=== PATIENT | female | born 1980 | race Caucasian/White ===

== ENCOUNTER 2016-10-16 12:20 | Emergency (ER) | payer BC ==
[~2016-10-16] VITALS: Wt 56.8 kg
--- NOTE | 2016-10-16 12:59 | RADRPT ---
PROCEDURE: XR Wrist. CLINICAL INDICATION: Right wrist pain, fall TECHNIQUE: AP, lateral and oblique views of the right wrist were performed. COMPARISON: No prior studies are available for comparison. FINDINGS: There is an acute comminuted mildly displaced distal radial metaphysis fracture with additional frac ture line at the radial styloid that may be extending to the articular surface. There is approximat nannette 5 mm of dorsal offset and slight dorsal angulation at the metaphyseal fracture line. There is ap proximately 1-2 mm of radial sided cortical offset at the metaphysis. There is also an acute minimally-displaced distal ulnar metaphysis fracture extending to the ulnar s tyloid. Diffuse soft tissue swelling of the wrist is noted. IMPRESSION: 1. Acute slightly comminuted distal radial metaphysis fracture with 5 mm of dorsal cortical offset a nd slight dorsal angulation. There is likely a nondisplaced intra-articular component of the fractu re involving the radial styloid as well. 2. Acute minimally-displaced distal ulnar metaphysis fracture extending to the ulnar styloid. RPTAT: UU .Pepe Anderson MD, Date Time Electronically viewed and signed by .Pepe Anderson MD, on 10/16/2016 12:59 .K/
[2016-10-16] MEDS ORDERED: IBUP800T25 PO (13:11)
--- NOTE | 2016-10-16 13:14 | ERD ---
ER Documentation Chief Complaint Date/Time DATE: 10/16/16 TIME: 13:13 Chief Complaint R WRIST PAIN WITH MILD SWELLING NO DEFORMITY NOTED. ONSET SINCE LAST NOC HPI This is a 36-year-old female who presents to the emergency room for evaluation of right-sided wrist pain. The patient states that she did fall last night on an outstretched hand. She denies any numbness or tingling in the hand, denies any other trauma or head injury. She does say she has pain in her wrist and the pain is worse with movement. ROS All systems reviewed and are negative except as per history of present illness. Medications Home Meds Active Scripts Ibuprofen* (Motrin*) 800 Mg Tab, 800 MG PO Q6H Y for PAIN AND OR ELEVATED TEMP, #30 TAB Prov:LINDA LOVENEO SMALL 10/16/16 Allergies Allergies: Coded Allergies: No Known Allergy (Unverified , 10/16/16) PMhx/Soc Medical and Surgical Hx: pt denies Medical Hx, pt denies Surgical Hx Hx Alcohol Use: No Hx Substance Use: No Hx Tobacco Use: No Smoking Status: Never smoker Physical Exam Vitals Vital Signs Date Time Temp Pulse Resp B/P Pulse Ox O2 Delivery O2 Flow Rate FiO2 10/16/16 12:34 98.0 78 20 104/72 98 Physical Exam Const: No acute distress, Head: Atraumatic Eyes: Normal Conjunctiva ENT: Normal External Ears, Nose and Mouth. Neck: Full range of motion..~ No meningismus. Resp: Clear to auscultation bilaterally Cardio: Regular rate and rhythm, no murmurs Abd: Soft, non tender, non distended. Normal bowel sounds Skin: No petechiae or rashes Back: No midline or flank tenderness Ext: Mild soft tissue swelling of the wrist, no cyanosis, or edema Neur: Awake and alert Psych: Normal Mood and Affect Procedures/MDM X-ray Wrist 3V Interpreted by me: Scaphoid: [Normal] Bones: Distal radial fracture, distal ulna fracture Joints: [No dislocation] Foreign body: [None] Departure Diagnosis: Primary Impression: Wrist fracture, right Patient Instructions: Radius And Ulna Fx, No Reduction Required Referrals: [facility] 7 a.m.- 11 p.m. Every Day of the Week NO APPOINTMENT OR AUTHORIZATION NEEDED [facility] Hours: Mon-Fri 9:00 AM - 5:00 PM Additional Instructions: Please follow-up with your orthopedic surgeon, You are amazing Doc!!!!!!!! REESE LOVE DO October 16, 2016 13:14
== END 2016-10-16 14:25 | disposition home or self-care (01) ==
LOC: E/R 12:20
DX: S52.611A Displaced fracture of right ulna styloid process, initial encounter for closed fracture (principal); S59.291A Other physeal fracture of lower end of radius, right arm, initial encounter for closed fracture; W18.39XA Other fall on same level, initial encounter; Y92.9 Unspecified place or not applicable

== ENCOUNTER 2019-01-24 08:28 | Emergency (ER) | payer BC ==
[~2019-01-24] VITALS: Ht 170.2 cm; Wt 55.0 kg
[~2019-01-24 08:28] MED LIST: HYDR-3980 PO; IBUP800T48 PO; ONDA4TAB14 PO
[2019-01-24 08:30] VITALS: Ht 170.2 cm; Wt 55.0 kg
[2019-01-24] MEDS ORDERED: HYDROmorphONE 1 MG/ML SYG IV ONE (08:30)
[2019-01-24] MEDS ORDERED: ONDANSETRON 4 MG INJ IV ONE (08:30)
[2019-01-24] MEDS ORDERED: SOD CHLORIDE 0.9% 500 ML IV STA (08:30)
[2019-01-24] MEDS ORDERED: HYDROmorphONE 2 MG/ML SYG IV STA (08:56)
[2019-01-24] MEDS ORDERED: KETAMINE (50 MG/ML) 10 ML VIAL IV STA ×2 (09:11→11:13)
[2019-01-24] MEDS ORDERED: PROPOFOL 200 MG INJ IV STA ×2 (09:11→11:13)
[2019-01-24] MEDS ORDERED: ONDANSETRON 4 MG INJ IV STA ×2 (11:09→12:48)
[2019-01-24 13:00] VITALS: BP 111/69; PULSE 79; RESP 16
--- NOTE | 2019-01-24 13:36 | ERD ---
ER Documentation Chief Complaint Chief Complaint left hip pain/injury due to fall HPI 38-year-old female otherwise healthy presents to the emergency room with sudden onset of left hip pain status post mechanical fall just prior to arrival. The patient was running slipped on a rock and fell down. She did not hit her head or lose consciousness. The patient is extremely left hip pain that is 10 out of 10, hip is held in flexion and the patient is shortening of the left lower extremity. ROS All systems reviewed and are negative except as per history of present illness. Medications Home Meds Active Scripts Ondansetron (Ondansetron Odt) 4 Mg Tab.rapdis, 4 MG PO Q6H PRN for NAUSEA AND/OR VOMITING, #30 TAB Prov:CAROLINA VELAZQUEZ MD 01/24/19 Ibuprofen* (Motrin*) 800 Mg Tab, 800 MG PO Q6H PRN for PAIN AND OR ELEVATED TEMP, #30 TAB Prov:CAROLINA VELAZQUEZ MD 01/24/19 Hydrocodone/Acetaminophen (Hope 10-325 Tablet) 1 Each Tablet, 1 TAB PO Q6H PRN for PAIN, #10 TAB Prov:CAROLINA VELAZQUEZ MD 01/24/19 Ibuprofen* (Motrin*) 800 Mg Tab, 800 MG PO Q6H PRN for PAIN AND OR ELEVATED TEMP, #30 TAB Prov:REESE LOVE DO 10/16/16 Allergies Allergies: Coded Allergies: No Known Allergy (Unverified , 10/16/16) PMhx/Soc Medical and Surgical Hx: pt denies Medical Hx Hx Alcohol Use: No Hx Substance Use: No Hx Tobacco Use: No Smoking Status: Never smoker FmHx Family History: No diabetes Physical Exam Vitals Vital Signs Date Temp Pulse Resp B/P (MAP) Pulse Ox O2 O2 Flow FiO2 Time Delivery Rate 01/24/19 79 16 111/69 100 Room Air 13:00 (83) 01/24/19 71 16 117/67 98 Room Air 12:00 (84) 01/24/19 88 16 116/81 100 Room Air 10:45 (93) Nasal Cannula 01/24/19 86 13 135/86 100 Nasal 09:50 (102) Cannula 01/24/19 2 08:32 01/24/19 97.7 76 24 106/92 100 08:30 (97) Physical Exam Airway is intact Bilateral breath sounds Strong distal pulses No obvious deficits General: Very uncomfortable, in obvious pain Head: Normocephalic, atraumatic Eyes: Pupils equally reactive, EOM intact ENT: Moist mucous membranes Neck: Supple, no lymphadenopathy, No midline tenderness, deformities, step-offs to the cervical spine, full active and passive range of motion without midline pain. Respiratory: Lungs clear bilaterally, no distress, no chest wall tenderness, no crepitus Cardiovascular: RRR, no murmurs, rubs, or gallops Abdominal: Soft, non-tender, non-distended, no peritoneal signs, pelvis is stable : Deferred MSK: Patient's left lower extremity is held in flexion, internally rotated and shortened. Strong distal pulses. Neurologic: Alert and oriented, moving all extremities, normal speech, no focal weakness, no cerebellar signs Skin: No ecchymoses or bruising to the chest or abdomen Psych: Normal mood Result Diagram: 01/24/19 0841 01/24/19 0841 Results 24 hrs Laboratory Tests Test 01/24/19 08:41 White Blood Count 5.2 10^3/ul Red Blood Count 3.91 10^6/ul Hemoglobin 13.1 g/dl Hematocrit 39.5 % Mean Corpuscular Volume 101.0 fl Mean Corpuscular Hemoglobin 33.5 pg Mean Corpuscular Hemoglobin Concent 33.2 g/dl Red Cell Distribution Width 12.1 % Platelet Count 178 10^3/UL Mean Platelet Volume 10.9 fl Immature Granulocytes % 0.000 % Neutrophils % 38.8 % Lymphocytes % 45.4 % Monocytes % 12.8 % Eosinophils % 1.9 % Basophils % 1.1 % Nucleated Red Blood Cells % 0.0 /100WBC Immature Granulocytes # 0.000 10^3/ul Neutrophils # 2.0 10^3/ul Lymphocytes # 2.4 10^3/ul Monocytes # 0.7 10^3/ul Eosinophils # 0.1 10^3/ul Basophils # 0.1 10^3/ul Nucleated Red Blood Cells # 0.0 10^3/ul Prothrombin Time 12.8 Sec Prothrombin Time Ratio 1.0 INR International Normalized Ratio 0.95 Activated Partial Thromboplast Time 26.9 Sec Sodium Level 137 mmol/L Potassium Level 4.2 mmol/L Chloride Level 100 mmol/L Carbon Dioxide Level 30 mmol/L Anion Gap 7 Blood Urea Nitrogen 13 mg/dl Creatinine 0.73 mg/dl Est Glomerular Filtrat Rate mL/min > 60 mL/min Glucose Level 112 mg/dl Calcium Level 9.0 mg/dl Serum HCG, Qualitative NEGATIVE Current Medications Medications Dose Sig/Daja Start Time Status Last (Trade) Ordered Route PRN Stop Time Admin Dose Reason Admin Sodium 500 ml @ Q1H STAT 01/24/19 DC 01/24/19 Chloride 500 mls/hr IV 08:30 08:43 01/24/19 09:29 1 mg ONCE ONCE 01/24/19 DC 01/24/19 Hydromorphone IV 08:30 08:43 HCl 01/24/19 08:32 (Dilaudid) Ondansetron 4 mg ONCE ONCE 01/24/19 DC 01/24/19 HCl (Zofran IV 08:30 08:43 Inj) 01/24/19 08:32 1 mg ONCE STAT 01/24/19 DC 01/24/19 Hydromorphone IV 08:56 09:07 HCl 01/24/19 09:01 (Dilaudid) Ketamine 25 mg ONCE STAT 01/24/19 DC 01/24/19 HCl IV 09:11 09:30 (Ketalar) 01/24/19 09:13 Propofol 25 mg ONCE STAT 01/24/19 DC 01/24/19 (Diprivan) IV 09:11 09:30 01/24/19 09:13 Ondansetron 4 mg ONCE STAT 01/24/19 DC 01/24/19 HCl (Zofran IV 11:09 11:11 Inj) 01/24/19 11:10 Ketamine 50 mg ONCE STAT 01/24/19 DC 01/24/19 HCl IV 11:13 09:40 (Ketalar) 01/24/19 11:14 Propofol 50 mg ONCE STAT 01/24/19 DC 01/24/19 (Diprivan) IV 11:13 09:40 01/24/19 11:14 Ondansetron 4 mg ONCE STAT 01/24/19 DC 01/24/19 HCl (Zofran IV 12:48 12:57 Inj) 01/24/19 12:49 Ondansetron 8 mg ONCE STAT 01/24/19 DC HCl (Zofran ODT 14:44 Odt) 01/24/19 14:47 Procedures/MDM EKG, MONITORS, & DIAGNOSTIC IMAGING: X-ray left hip: I reviewed and interpreted multiple views of the x-ray Bones: No evidence of acute fracture dislocation or subluxation Soft tissue: No evidence of foreign body X-ray pelvis: X-ray pelvis: I reviewed and interpreted 1 view of the pelvis, there left hip d islocation without any other evidence of pelvic fractures or dislocations. X-ray left hip status post reduction: I reviewed and interpreted multiple views of the x-ray Bones: Successful reduction of the left hip dislocation with associated femoral head and neck fracture Soft tissue: No evidence of foreign body MRI HIP IMPRESSION: 1. Oblique intra-articular displaced fracture of the femoral head and inferior neck. 2. Posterior capsular disruption, labral detachment, hematoma and strain of the quadratus muscle consistent with a recent posterior dislocation. RPTAT: XX PROCEDURE: Procedural sedation note: The patient and/or family member was consented prior to procedure and understan ds the risks, benefits, alternatives. A document was signed and placed in the chart. ASA class: 1 Mallampati Score: 1 N.p.o. status: Greater than 6 hours Indication: Left hip dislocation Medications: Ketamine 25 bolus with titration up to a total of 75 mg, Propofol 25 bolus with titration up to total 75 mg Time out was performed. Emergency airway equipment was placed to the patient's bedside. The patient was placed on supplemental oxygen. Respiratory therapy was available. The patient was placed on a cardiac cath lab manager. The patient tolerated sedation well with no significant adverse events and no significant desaturations. I spent greater than 15 minutes of bedside time with this patient during sedation. Status post sedation the patient was arousable, protecting their airway, and well appearing. Closed reduction: The patient and/or family members were verbally consented for the procedure understanding the risks, benefits, alternatives. The document was signed and placed in the chart. Time out was performed. Indication: Left hip dislocation Location: Left hip Technique: Traction and countertraction Neurovascular exam: The patient was neurovascularly intact distal to the injury both prior to and status post closed reduction The patient had improvement in anatomic alignment, tolerated the procedure well without complications. LAB INTERPRETATION: I reviewed the laboratory testing and it shows no evidence of acute process MEDICAL DECISION MAKING: Patient has mechanical trip and fall with evidence of left hip injury concern for fracture versus dislocation. Patient is in obvious pain. No evidence of head injury or C-spine injury. ER COURSE: * The patient presents with x-ray imaging consistent with a left hip dislocation. There is concern for possible fracture but the patient will benefit from immediate close reduction at the bedside. * Patient was provided with several doses of pain medication with improved symptoms. The patient had procedural sedation with successful closed reduction as documented above. Patient recovered nicely. Patient has a known orthopedic surgeon. We discussed the case. He recommends MRI imaging. * MRI of the left hip has been ordered. * Patient was placed in an abduction pillow * After some time the patient's pain is much improved. Her symptoms are improved. She has recovered from procedural sedation. She has appropriate outpatient orthopedic surgery follow-up. Patient can be discharged on crutches, pain medication and follow-up with orthopedic specialty. CONSULTATION: None DISPOSITION PLAN: The patient does not have an identifiable emergent medical condition that warrants inpatient hospitalization at this time. The patient is deemed safe for discharge with outpatient follow-up. We discussed follow up with the patient's primary care doctor within 24 to 48 hours as needed. We also discussed return to the emergency room for worsening symptoms or worsening condition. Outpatient referral: Orthopedic surgeon Discharge Medications: Motrin, Hope, Zofran NARCOTIC MEDICATION: The patient has been prescribed a narcotic medication during this encounter. The patient has been warned about the use of narcotics. The patient should not drive or operate heavy machinery while taking this medication. The patient was also warned about the addictive properties of narcotic medications. Narcan prescription was NOT provided given the following criteria: 1. No more than 5 tablets of Hope 10 mg or 10 tablets of Hope 5 mg were prescribed. 2. Concomitant opiate and benzodiazepine prescriptions were not provided. 3. There is no obvious evidence of prior history of opiate abuse or overdose. Departure Diagnosis: Primary Impression: Closed dislocation of left hip Encounter type: initial encounter Qualified Codes: S73.005A - Unspecified dislocation of left hip, initial encounter Additional Impression: Closed left hip fracture Encounter type: initial encounter Qualified Codes: S72.002A - Fracture of unspecified part of neck of left femur, initial encounter for closed fracture Condition: CAROLINA Meza MD Jan 24, 2019 13:36
[2019-01-24] MEDS ORDERED: ONDANSETRON (ODT) 4 MG TAB ODT STA (14:44)
== END 2019-01-24 15:57 | disposition home or self-care (01) ==
LOC: E/R 08:28 → EEVIPCON 08:28 → E/R 15:57
DX: S73.015A Posterior dislocation of left hip, initial encounter (principal); S72.002A Fracture of unspecified part of neck of left femur, initial encounter for closed fracture; S72.052A Unspecified fracture of head of left femur, initial encounter for closed fracture; W18.39XA Other fall on same level, initial encounter
CPT/HCPCS: 27250; 72170; 73510; 73721; 80048; 84703; 85025; 85610; 85730; J1170; J2405; J7040; 36415; 96374; 96375; 96376